=== PATIENT | female | born 1995 | race Caucasian/White ===

== ENCOUNTER 2017-04-10 16:42 | Emergency (ER) | payer OTHER ==
[2017-04-10 17:14] VITALS: BP 111/84
[2017-04-10] MEDS ORDERED: Acetaminophen TAB* 325 MG PO ONE (17:33)
[2017-04-10] MEDS ORDERED: Ondansetron ODT TAB* 4 MG PO ONE (18:06)
[2017-04-10] MEDS ORDERED: Oseltamivir CAP* 75 MG CAP PO ONE (18:06)
--- NOTE | 2017-04-10 18:06 | ED ---
Influenza-Like Illness - HPI Summary HPI Summary: 21 yr old female with the complaint of chills, myalgias, fatigue, cough , congestion, multiple episodes of diarrhea, low abdominal cramping. Onset over the past day. She denies specific focal abdominal pain. It is vague and diffuse. - History of Current Complaint Chief Complaint: UCRespiratory Time Seen by Provider: 04/10/17 17:33 - Allergy/Home Medications Allergies/Adverse Reactions: Allergies Allergy/AdvReac Type Severity Reaction Status Date / Time clindamycin Allergy See Comment Verified 04/10/17 17:14 Home Medications: Home Medications Control Pill 1 tab 04/10/17 [History] Dm/Acetaminophen/Doxylamine [Vicks Nyquil Cold & Flu N 15-6.25-325 mg] 2 cap PO 04/10/17 [History] Pseudoephedrine HCl [Sudafed 12 Hour] 120 mg PO 04/10/17 [History] PMH/Surg Hx/FS Hx/Imm Hx Infectious Disease History: No Infectious Disease History: Denies: Traveled Outside the [place] in Last 30 Days - Social History Alcohol Use: Rare Substance Use Type: Reports: None Smoking Status (MU): Never Smoked Tobacco Review of Systems Positive: Chills Positive: Nasal Discharge Positive: Cough Positive: Diarrhea, Nausea Negative: burning, dysuria, discharge, frequency, flank pain, hematuria, pain, urgency Positive: Myalgia All Other Systems Reviewed And Are Negative: Yes Physical Exam Triage Information Reviewed: Yes Vital Signs On Initial Exam: Initial Vitals Temp Pulse Resp BP Pulse Ox 98.3 F 119 18 111/84 100 04/10/17 17:11 04/10/17 17:11 04/10/17 17:11 04/10/17 17:11 04/10/17 17:11 Vital Signs Reviewed: Yes Appearance: Positive: Well-Appearing, No Pain Distress Head/Face: Positive: Normal Head/Face Inspection Eyes: Positive: EOMI ENT: Positive: Pharynx normal, Nasal congestion, TMs normal Respiratory/Lung Sounds: Positive: Clear to Auscultation, Breath Sounds Present Cardiovascular: Positive: RRR. Negative: Murmur Abdomen Description: Positive: Nontender. Negative: Distended, Guarding Musculoskeletal: Positive: Strength/ROM Intact Neurological: Positive: Sensory/Motor Intact, Alert, Oriented to Person Place, Time, CN Intact II-III Psychiatric: Positive: Normal - Ronks Coma Scale Best Eye Response: 4 - Spontaneous Best Motor Response: 6 - Obeys Commands Best Verbal Response: 5 - Oriented Coma Scale Total: 15 Diagnostics - Vital Signs Vital Signs Temp Pulse Resp BP Pulse Ox 04/10/17 17:11 98.3 F 119 18 111/84 100 - Laboratory Lab Results: Lab Results 04/10/17 04/10/17 04/10/17 Range/Units 17:40 17:42 17:46 POC Urine Color Yellow POC Urine Clarity Slightly cloudy POC Urine pH 5.5 (5-9) POC Ur Specif [place] <= 1.005 L (1.010-1.030) POC Urine Protein Negative (Negative) POC Ur Glucose (UA) Negative (Negative) POC Urine Ketones Negative (Negative) POC Urine Blood Negative (Negative) POC Urine Nitrite Negative (Negative) POC Urine Bilirubin Negative (Negative) POC Urine Urobilinogen 0.2 (Negative) POC U Leukocyte Esteras 1+ A (Negative) POC Ur Test Negative (Negative) Influenza A (Rapid) Negative (Negative) Influenza B (Rapid) Positive A (Negative) Lab Statement: Any lab studies that have been ordered have been reviewed, and results considered in the medical decision making process. Flu Symptom Course/Dx - Course Course Of Treatment: 21 yr old female with influenza B positive. Rx with Tamiflu, and also zofran as needed. - Diagnoses Provider Diagnoses: Influenza B Discharge - Discharge Plan Condition: Good Disposition: HOME Prescriptions: Ondansetron ODT TAB* [Zofran 4 MG Odt TAB*] 4 mg PO Q8H PRN #10 tab.odt PRN Reason: Nausea Oseltamivir CAP* [Tamiflu CAP*] 75 mg PO BID #10 cap Patient Education Materials: Influenza (ED), Gastroenteritis (DC), Dehydration (ED) Referrals: Non Staff,Doctor [Primary Care Provider] -
== END 2017-04-10 18:21 | disposition home or self-care (01) ==
LOC: UCCORT 16:42
DX: J10.1 Influenza due to other identified influenza virus with other respiratory manifestations (principal)
CPT/HCPCS: 81003; 84702; 87086; 87502; 99202; A9270-GY; G0463